=== PATIENT | female | born 1955 | race Caucasian/White ===

== ENCOUNTER 2022-06-23 09:30 | Emergency (ER) | payer MEDICARE ==
[2022-06-23] MEDS ORDERED: Ipratropium/Albuterol 3 ML NEB ONE (09:51)
[2022-06-23] MEDS ORDERED: predniSONE 20 MG TAB ONE (10:00)
== END 2022-06-23 11:32 | disposition home or self-care (01) ==
LOC: NAV ERS 09:30
DX: J20.9 Acute bronchitis, unspecified (principal); K44.9 Diaphragmatic hernia without obstruction or gangrene; Z20.822 Contact with and (suspected) exposure to COVID-19; Z79.899 Other long term (current) drug therapy
CPT/HCPCS: 71046; 87804 ×2; U0003; U0005; J7512; J7611; J7620